=== PATIENT | female | born 1970 | race Two or more races ===

== ENCOUNTER 2023-08-05 06:00 | Day surgery (SDC) | payer OTHER ==
[2023-07-28 10:17] LABS: URINE APPEARANCE Clear; URINE BILIRRUBIN Negative (NEGATIVE); URINE BLOOD Negative; URINE COLOR Yellow; URINE GLUCOSE Negative (NEGATIVE); URINE LEUKOCYTE Negative; URINE NITRATE Negative; URINE PROTEIN Negative (NEGATIVE); URINE UROBILINOGEN 0.2 E.U./dl
[2023-07-28 10:21] LABS: URINE BACTERIA 37.7 uL (0.0-1933); URINE EPITHELIAL CELLS 4.3 uL (0.0-38.8); URINE RBC 4.5 uL (0.0-20.8); URINE WBC 2.6 uL (0.0-23.2)
[2023-07-28 11:34] LABS: HEMATOCRIT 42.8 % (36.0-45.00); MEAN CELL VOLUME 89.1 fL (80.00-100.00); MEAN CORPUSCULAR HEMOGLOBIN 29.2 pg (27.00-32.0); MEAN CORPUSCULAR HGB CONC 32.8 g/dl (32.0-36.0); PLATELET COUNT 202 K/uL (150-450)
[2023-07-28 11:53] LABS: INR 0.99; PARTIAL THROMBOPLASTIN TIME 25.7 SECONDS (22.0-34.0); PROTHROMBIN TIME 10.4 SECONDS (9.0-11.5)
[2023-07-28 12:01] LABS: ALBUMIN 4.2 gm/dL (3.4-5.0); BILIRUBIN TOTAL 0.58 mg/dL (0.3-1.2); CALCIUM 9.1 mg/dL (8.5-10.1); CREATININE SERUM 0.54 mg/dL (0.55-1.02); GFR 118.09; GLOBULINA 3.7 G/DL (2.4-3.5); PHOSPHOROUS 4.2 mg/dL (2.5-4.9); POTASSIUM 4.48 mEq/L (3.5-5.1); TOTAL PROTEIN 7.9 gm/dL (6.4-8.2)
[~2023-08-05 06:00] MED LIST: COZAAR100 MG PO; NORVASC2.5 M1 PO
[2023-08-05] MEDS ORDERED: COLACE100 MG PO (08:35)
[2023-08-05] MEDS ORDERED: TRAM1TAB98 PO (08:35)
== END 2023-08-05 14:00 | disposition home or self-care (01) ==
LOC: CIR.AMB 06:00
PROVIDERS: ATTEND Surgery
DX: K62.82 Dysplasia of anus (principal); D37.8 Neoplasm of uncertain behavior of other specified digestive organs; D12.9 Benign neoplasm of anus and anal canal; A63.0 Anogenital (venereal) warts; K62.89 Other specified diseases of anus and rectum; I10 Essential (primary) hypertension; Z20.822 Contact with and (suspected) exposure to COVID-19